=== PATIENT | male | born 2000 | race African-American/Black ===

== ENCOUNTER 2024-10-06 18:00 | Emergency (ER) | payer OTHER ==
[~2024-10-06] VITALS: Ht 165.1 cm; Wt 56.7 kg
[2024-10-06 19:53] LABS: Influenza A, PCR NEGATIVE (NEGATIVE); Influenza B, PCR NEGATIVE (NEGATIVE); SARS-Cov-2 (COVID-19) PCR, MMC NEGATIVE (NEGATIVE)
[2024-10-06 19:59] LABS: Resp Syncytial Virus, PCR POSITIVE (NEGATIVE)
[2024-10-06] MEDS ORDERED: ALBU90OI INH (20:22)
[2024-10-06] MEDS ORDERED: BENZ100A PO (20:22)
== END 2024-10-06 20:34 | disposition home or self-care (01) ==
LOC: ER 18:00
PROVIDERS: Physician Assistant
DX: B33.8 Other specified viral diseases (principal); B97.4 Respiratory syncytial virus as the cause of diseases classified elsewhere; J45.909 Unspecified asthma, uncomplicated; Z59.89 Other problems related to housing and economic circumstances
CPT/HCPCS: 0241U; 71046; 99283-25

== ENCOUNTER 2024-12-27 21:58 | Emergency (ER) | payer OTHER ==
[~2024-12-27] VITALS: Ht 165.1 cm; Wt 59.0 kg
[~2024-12-27 21:58] MED LIST: ALBU90OI INH; BENZ100A PO
== END 2024-12-27 22:45 | disposition home or self-care (01) ==
LOC: ER 21:58
DX: M54.2 Cervicalgia (principal); R68.84 Jaw pain; Y04.8XXA Assault by other bodily force, initial encounter
CPT/HCPCS: 99283